=== PATIENT | male | born 1950 | race Caucasian/White ===

== ENCOUNTER → 2018-04-13 | Outpatient (CLI) | payer BC ==
[2015-05-21 09:50] VITALS: BP 112/78
[~2018-04-13] MED LIST: ADULT LOW DOSE81 MG PO; COENZYME Q10100 M1 PO; EFFIENT10 M1 PO; ENALAPRIL5 MG PO; FEOSOL325 MG PO; FISH OIL500 M1 PO; HCTZ 25MG25 MG PO; LIPITOR20 M1 PO; NATURAL VITAM1000 MG PO; PHARMASSURE FO0.4 MG PO; PRAVASTATIN40 MG PO; TOPROL XL 50MG50 MG PO; TYLENOL 325MG325 MG PO; VOLTAREN-XR100 MG PO
[2018-04-13 15:28] LABS: EOS # 0.1 (0.04-0.40); EOS % 1.7 % (0.0-4.0); HEMATOCRIT 47.9 % (42.0-52.0); HEMOGLOBIN 16.1 g/dL (13.5-18.0); LYMPH# 1.3 (1.50-4.00); MEAN CELL VOLUME 98 fl (78-100); MEAN CORPUSCULAR HEMOGLOBIN 33 pg (27-31); MEAN CORPUSCULAR HGB CONC 34 g/dL (33-37); MEAN PLATELET VOLUME 8.7 fl (7.4-10.4); MONO # 0.8 (0.20-0.80); NEU # 4.7 (1.40-6.50); PLATELET COUNT 234 K/mm3 (130-400); RED CELL DISTRIBUTION WIDTH 13.2 % (11.5-14.5)
[2018-04-13 15:46] LABS: PH-URINE 6.5 (5.0 - 8.0); URINE APPEARANCE CLEAR; URINE BILIRUBIN NEGATIVE (NEGATIVE); URINE BLOOD NEGATIVE (NEGATIVE); URINE COLOR YELLOW; URINE GLUCOSE NEGATIVE (NEGATIVE); URINE KETONE NEGATIVE (NEGATIVE); URINE LEUKOCYTE ESTERASE NEGATIVE (NEGATIVE); URINE NITRATE NEGATIVE (NEGATIVE); URINE PROTEIN(semi-quant) NEGATIVE (NEGATIVE); URINE UROBILINOGEN 1 mg/dL (NORMAL); URINE WBC 0-1 /hpf (0-3)
[2018-04-13 15:50] LABS: ALBUMIN 4.2 g/dL (3.5-5.0); CALCIUM 8.9 mg/dL (8.4-10.2); POTASSIUM 3.9 mmol/L (3.6-5.0); TOTAL BILIRUBIN 0.6 mg/dL (0.2-1.3)
[2018-04-13 17:20] LABS: ERYTHROCYTE SEDIMENTATION RATE 2 mm/hr (0-20)
== END ==
LOC: LAB 15:08 → EDSTATUS 15:16
PROVIDERS: Internal Medicine
DX: R10.31 Right lower quadrant pain (principal)

== ENCOUNTER → 2018-12-18 | Outpatient (CLI) | payer MEDICARE, BC ==
[2015-05-21 09:50] VITALS: BP 112/78
[2018-12-18 10:26] LABS: EOS # 0.1 (0.04-0.40); EOS % 1.7 % (0.0-4.0); HEMATOCRIT 49.2 % (42.0-52.0); HEMOGLOBIN 16.5 g/dL (13.5-18.0); LYMPH# 1.4 (1.50-4.00); MEAN CELL VOLUME 99 fl (78-100); MEAN CORPUSCULAR HEMOGLOBIN 33 pg (27-31); MEAN CORPUSCULAR HGB CONC 34 g/dL (33-37); MEAN PLATELET VOLUME 9.1 fl (7.4-10.4); MONO # 0.7 (0.20-0.80); NEU # 3.8 (1.40-6.50); PLATELET COUNT 163 K/mm3 (130-400); RED BLOOD COUNT 4.98 M/mm3 (4.20-5.60); RED CELL DISTRIBUTION WIDTH 13.4 % (11.5-14.5); WHITE BLOOD COUNT 6.1 K/mm3 (4.8-10.8)
[2018-12-18 10:29] LABS: POTASSIUM 4.4 mmol/L (3.5-5.1)
[2018-12-18 10:30] LABS: ALBUMIN 4.1 g/dL (3.4-4.8)
[2018-12-18 10:32] LABS: TOTAL PROTEIN 6.9 g/dL (6.2-8.1)
[2018-12-18 10:34] LABS: TOTAL BILIRUBIN 0.9 mg/dL (0.2-1.2)
[2018-12-18 11:37] LABS: ERYTHROCYTE SEDIMENTATION RATE 1 mm/hr (0-20)
== END ==
LOC: LAB 10:01
PROVIDERS: Internal Medicine
DX: Z12.5 Encounter for screening for malignant neoplasm of prostate (principal); Z12.11 Encounter for screening for malignant neoplasm of colon; I25.10 Atherosclerotic heart disease of native coronary artery without angina pectoris; I10 Essential (primary) hypertension; E23.0 Hypopituitarism

== ENCOUNTER → 2019-06-11 | Outpatient (CLI) | payer MEDICARE, BC ==
[2015-05-21 09:50] VITALS: BP 112/78
[2019-06-11 09:33] LABS: HEMATOCRIT 51.7 % (42.0-52.0); HEMOGLOBIN 17.1 g/dL (13.5-18.0); MEAN CELL VOLUME 99 fl (78-100); MEAN CORPUSCULAR HEMOGLOBIN 33 pg (27-31); MEAN CORPUSCULAR HGB CONC 33 g/dL (33-37); MEAN PLATELET VOLUME 8.9 fl (7.4-10.4); PLATELET COUNT 191 K/mm3 (130-400); RED BLOOD COUNT 5.24 M/mm3 (4.20-5.60); RED CELL DISTRIBUTION WIDTH 13.4 % (11.5-14.5); WHITE BLOOD COUNT 6.1 K/mm3 (4.8-10.8)
[2019-06-11 10:01] LABS: POTASSIUM 4.3 mmol/L (3.5-5.1)
[2019-06-11 10:02] LABS: ALBUMIN 4.4 g/dL (3.4-4.8)
[2019-06-11 10:03] LABS: CALCIUM 9.7 mg/dL (8.3-10.5)
[2019-06-11 10:04] LABS: TOTAL PROTEIN 7.4 g/dL (6.2-8.1)
[2019-06-11 10:06] LABS: TOTAL BILIRUBIN 0.8 mg/dL (0.2-1.2)
[2019-06-11 10:40] LABS: LYMPHOCYTE 23 % (20-51); MONOCYTE 12 % (3-10); NEUTROPHILS 65 % (42-75)
== END ==
LOC: LAB 09:21
PROVIDERS: Internal Medicine
DX: I10 Essential (primary) hypertension (principal); E78.5 Hyperlipidemia, unspecified

== ENCOUNTER → 2019-12-19 | Outpatient (CLI) | payer MEDICARE, BC ==
[2015-05-21 09:50] VITALS: BP 112/78
[2019-12-19 10:16] LABS: ALBUMIN 4.4 g/dL (3.4-4.8); POTASSIUM 4.4 mmol/L (3.5-5.1)
[2019-12-19 10:17] LABS: CALCIUM 9.1 mg/dL (8.3-10.5)
[2019-12-19 10:19] LABS: TOTAL PROTEIN 7.3 g/dL (6.2-8.1)
[2019-12-19 10:20] LABS: TOTAL BILIRUBIN 0.9 mg/dL (0.2-1.2)
[2019-12-19 10:21] LABS: HEMATOCRIT 50.1 % (42.0-52.0); HEMOGLOBIN 16.8 g/dL (13.5-18.0); MEAN CELL VOLUME 98 fl (78-100); MEAN CORPUSCULAR HEMOGLOBIN 33 pg (27-31); MEAN CORPUSCULAR HGB CONC 34 g/dL (33-37); MEAN PLATELET VOLUME 8.7 fl (7.4-10.4); PLATELET COUNT 165 K/mm3 (130-400); RED BLOOD COUNT 5.11 M/mm3 (4.20-5.60); RED CELL DISTRIBUTION WIDTH 13.4 % (11.5-14.5); WHITE BLOOD COUNT 6.8 K/mm3 (4.8-10.8)
[2019-12-19 10:26] LABS: MAGNESIUM 2.13 mg/dL (1.60-2.60)
[2019-12-19 10:34] LABS: LYMPHOCYTE 26 % (20-51); MONOCYTE 13 % (3-10); NEUTROPHILS 61 % (42-75)
[2019-12-19 10:55] LABS: URINE APPEARANCE CLEAR; URINE BILIRUBIN NEGATIVE (NEGATIVE); URINE BLOOD NEGATIVE (NEGATIVE); URINE COLOR YELLOW; URINE GLUCOSE NEGATIVE (NEGATIVE); URINE KETONE NEGATIVE (NEGATIVE); URINE LEUKOCYTE ESTERASE NEGATIVE (NEGATIVE); URINE MUCUS PRESENT (NOT PRESENT); URINE NITRATE NEGATIVE (NEGATIVE); URINE PROTEIN(semi-quant) NEGATIVE (NEGATIVE); URINE UROBILINOGEN NORMAL (NORMAL)
[2019-12-19 11:19] LABS: ERYTHROCYTE SEDIMENTATION RATE 0 mm/hr (0-20)
== END ==
LOC: LAB 09:48
PROVIDERS: Internal Medicine
DX: Z00.00 Encounter for general adult medical examination without abnormal findings (principal); Z12.5 Encounter for screening for malignant neoplasm of prostate; Z12.11 Encounter for screening for malignant neoplasm of colon; E23.0 Hypopituitarism; I10 Essential (primary) hypertension; I25.10 Atherosclerotic heart disease of native coronary artery without angina pectoris; E03.9 Hypothyroidism, unspecified; R10.31 Right lower quadrant pain

== ENCOUNTER → 2020-01-10 | Outpatient (CLI) | payer MEDICARE, BC ==
[2015-05-21 09:50] VITALS: BP 112/78
== END ==
LOC: LAB 09:13
DX: Z12.11 Encounter for screening for malignant neoplasm of colon (principal); I25.10 Atherosclerotic heart disease of native coronary artery without angina pectoris; E23.0 Hypopituitarism

== ENCOUNTER → 2020-06-18 | Outpatient (CLI) | payer MEDICARE, BC ==
[2015-05-21 09:50] VITALS: BP 112/78
[2020-06-18 10:02] LABS: ALBUMIN 4.2 g/dL (3.4-4.8); POTASSIUM 4.2 mmol/L (3.5-5.1)
[2020-06-18 10:03] LABS: CALCIUM 9.3 mg/dL (8.3-10.5)
[2020-06-18 10:07] LABS: TOTAL BILIRUBIN 0.8 mg/dL (0.2-1.2)
[2020-06-18 10:16] LABS: HEMATOCRIT 51.1 % (42.0-52.0); HEMOGLOBIN 16.8 g/dL (13.5-18.0); MEAN CELL VOLUME 99 fl (78-100); MEAN CORPUSCULAR HEMOGLOBIN 33 pg (27-31); MEAN CORPUSCULAR HGB CONC 33 g/dL (33-37); MEAN PLATELET VOLUME 9.3 fl (7.4-10.4); PLATELET COUNT 174 K/mm3 (130-400); RED BLOOD COUNT 5.16 M/mm3 (4.20-5.60); RED CELL DISTRIBUTION WIDTH 14.1 % (11.5-14.5); WHITE BLOOD COUNT 5.4 K/mm3 (4.8-10.8)
[2020-06-18 11:18] LABS: LYMPHOCYTE 23 % (20-51); MONOCYTE 14 % (3-10); NEUTROPHILS 60 % (42-75)
[2020-06-18 11:43] LABS: ERYTHROCYTE SEDIMENTATION RATE 38 mm/hr (0-20)
== END ==
LOC: LAB 09:28
PROVIDERS: Internal Medicine
DX: E78.2 Mixed hyperlipidemia (principal); E23.0 Hypopituitarism; I10 Essential (primary) hypertension

== ENCOUNTER → 2020-12-17 | Outpatient (CLI) | payer MEDICARE, BC ==
[2020-12-17 10:57] LABS: BASO # 0.02 (0.02-0.10); EOS # 0.13 (0.04-0.40); EOS % 2.1 % (0.0-4.0); HEMATOCRIT 49.7 % (42.0-52.0); HEMOGLOBIN 16.9 g/dL (13.5-18.0); MEAN CELL VOLUME 97 fl (78-100); MEAN CORPUSCULAR HEMOGLOBIN 33 pg (27-31); MEAN CORPUSCULAR HGB CONC 34 g/dL (33-37); MEAN PLATELET VOLUME 8.6 fl (7.4-10.4); MONO # 0.81 (0.20-0.80); NEU # 4.06 (1.40-6.50); PLATELET COUNT 171 K/mm3 (130-400); RED BLOOD COUNT 5.11 M/mm3 (4.20-5.60); RED CELL DISTRIBUTION WIDTH 12.4 % (11.5-14.5); WHITE BLOOD COUNT 6.3 K/mm3 (4.8-10.8)
[2020-12-17 11:12] LABS: ALBUMIN 4.1 g/dL (3.4-4.8); POTASSIUM 4.4 mmol/L (3.5-5.1)
[2020-12-17 11:13] LABS: CALCIUM 9.5 mg/dL (8.3-10.5)
[2020-12-17 11:14] LABS: TOTAL PROTEIN 7.1 g/dL (6.2-8.1)
[2020-12-17 11:16] LABS: TOTAL BILIRUBIN 0.7 mg/dL (0.2-1.2)
[2020-12-17 12:04] LABS: ERYTHROCYTE SEDIMENTATION RATE 2 mm/hr (0-20)
[2020-12-17 22:31] LABS: TESTOSTERONE 289 ng/dL (221-716)
== END ==
LOC: LAB 10:22
PROVIDERS: Internal Medicine
DX: I10 Essential (primary) hypertension (principal); E78.2 Mixed hyperlipidemia; E23.0 Hypopituitarism; K90.9 Intestinal malabsorption, unspecified

== ENCOUNTER → 2021-07-01 | Outpatient (CLI) | payer MEDICARE, BC ==
[2021-07-01 11:12] LABS: ALBUMIN 4.2 g/dL (3.4-4.8); POTASSIUM 4.3 mmol/L (3.5-5.1)
[2021-07-01 11:13] LABS: CALCIUM 9.7 mg/dL (8.3-10.5)
[2021-07-01 11:15] LABS: TOTAL PROTEIN 7.2 g/dL (6.2-8.1)
[2021-07-01 11:16] LABS: TOTAL BILIRUBIN 0.8 mg/dL (0.2-1.2)
[2021-07-01 11:17] LABS: BASO # 0.02 K/mm3 (0.02-0.10); EOS # 0.12 K/mm3 (0.04-0.40); EOS % 1.8 % (0.0-4.0); HEMATOCRIT 51.7 % (42.0-52.0); HEMOGLOBIN 17.5 g/dL (13.5-18.0); LYMPH# 1.42 K/mm3 (1.50-4.00); MEAN CELL VOLUME 96 fl (78-100); MEAN CORPUSCULAR HEMOGLOBIN 33 pg (27-31); MEAN CORPUSCULAR HGB CONC 34 g/dL (33-37); MEAN PLATELET VOLUME 8.5 fl (7.4-10.4); MONO # 0.84 K/mm3 (0.20-0.80); NEU # 4.41 K/mm3 (1.40-6.50); PLATELET COUNT 180 K/mm3 (130-400); RED BLOOD COUNT 5.37 M/mm3 (4.20-5.60); RED CELL DISTRIBUTION WIDTH 13.2 % (11.5-14.5); WHITE BLOOD COUNT 6.8 K/mm3 (4.8-10.8)
[2021-07-01 12:37] LABS: ERYTHROCYTE SEDIMENTATION RATE 22 mm/hr (0-20)
[2021-07-01 23:49] LABS: TESTOSTERONE 336 ng/dL (221-716)
== END ==
LOC: LAB 10:47
PROVIDERS: Internal Medicine
DX: Z12.5 Encounter for screening for malignant neoplasm of prostate (principal); Z12.11 Encounter for screening for malignant neoplasm of colon; I25.10 Atherosclerotic heart disease of native coronary artery without angina pectoris; E23.0 Hypopituitarism; E78.2 Mixed hyperlipidemia; G47.33 Obstructive sleep apnea (adult) (pediatric); J98.4 Other disorders of lung; I10 Essential (primary) hypertension; K90.9 Intestinal malabsorption, unspecified; L30.9 Dermatitis, unspecified

== ENCOUNTER → 2021-07-24 | Outpatient (CLI) | payer MEDICARE, BC | LOC: LAB 11:16 | DX: Z12.5 Encounter for screening for malignant neoplasm of prostate (principal); Z12.11 Encounter for screening for malignant neoplasm of colon; I25.10 Atherosclerotic heart disease of native coronary artery without angina pectoris; E23.0 Hypopituitarism; E78.2 Mixed hyperlipidemia; G47.33 Obstructive sleep apnea (adult) (pediatric); J98.4 Other disorders of lung; I10 Essential (primary) hypertension; K90.9 Intestinal malabsorption, unspecified; L30.9 Dermatitis, unspecified ==

== ENCOUNTER → 2023-01-09 | Day surgery (SDC) | payer MEDICARE, BC | END | disposition home or self-care (01) | LOC: MSO 07:26 | DX: Z12.11 Encounter for screening for malignant neoplasm of colon (principal); G47.33 Obstructive sleep apnea (adult) (pediatric); E66.9 Obesity, unspecified | CPT/HCPCS: G0121; 00812; J2704; J3010; J7120 ==

== ENCOUNTER → 2023-12-12 | Outpatient (CLI) | payer MEDICARE, BC ==
[2023-12-12 14:48] LABS: BASO # 0.02 K/mm3 (0.02-0.10); EOS # 0.24 K/mm3 (0.04-0.40); EOS % 3.1 % (0.0-4.0); HEMATOCRIT 48.4 % (42.0-52.0); HEMOGLOBIN 16.1 g/dL (13.5-18.0); LYMPH# 1.97 K/mm3 (1.50-4.00); MEAN CELL VOLUME 99 fl (78-100); MEAN CORPUSCULAR HEMOGLOBIN 33 pg (27-31); MEAN CORPUSCULAR HGB CONC 33 g/dL (33-37); MEAN PLATELET VOLUME 9.2 fl (7.4-10.4); NEU # 4.76 K/mm3 (1.40-6.50); PLATELET COUNT 154 K/mm3 (130-400); RED BLOOD COUNT 4.91 M/mm3 (4.20-5.60); WHITE BLOOD COUNT 7.8 K/mm3 (4.8-10.8)
[2023-12-12 14:54] LABS: ALBUMIN 4.2 g/dL (3.4-4.8)
[2023-12-12 14:56] LABS: CALCIUM 9.4 mg/dL (8.3-10.5)
[2023-12-12 14:57] LABS: TOTAL PROTEIN 6.9 g/dL (6.2-8.1)
[2023-12-12 14:59] LABS: TOTAL BILIRUBIN 0.5 mg/dL (0.2-1.2)
[2023-12-12 15:02] LABS: PROTHROMBIN TIME 10.3 SECONDS (9.0-12.0)
[2023-12-12 15:04] LABS: MAGNESIUM 2.09 mg/dL (1.60-2.60)
[2023-12-12 15:49] LABS: URINE APPEARANCE CLEAR (CLEAR); URINE BILIRUBIN NEGATIVE (NEGATIVE); URINE BLOOD NEGATIVE (NEGATIVE); URINE COLOR YELLOW (YELLOW); URINE GLUCOSE NEGATIVE (NEGATIVE); URINE KETONE NEGATIVE (NEGATIVE); URINE LEUKOCYTE ESTERASE NEGATIVE (NEGATIVE); URINE NITRATE NEGATIVE (NEGATIVE); URINE PROTEIN(semi-quant) NEGATIVE (NEGATIVE)
[2023-12-12 15:50] LABS: URINE MUCUS PRESENT (NOT PRESENT)
== END ==
LOC: LAB 14:29
PROVIDERS: Internal Medicine
DX: Z01.818 Encounter for other preprocedural examination (principal); Z12.5 Encounter for screening for malignant neoplasm of prostate